=== PATIENT | female | born 1990 | race Caucasian/White ===

== ENCOUNTER 2016-04-05 09:45 | Emergency (ER) | payer OTHER ==
[~2016-04-05] VITALS: Ht 170.2 cm; Wt 108.7 kg
[~2016-04-05 09:45] MED LIST: ABREVA2 GM TP; ATARAX,VISTARIL25 MG PO; BENADRYL25 MG PO; CALCITROL; CIPRODEX OTIC7.5 ML LEFT EAR; DOXYCYCLINE MO100 MG PO; FLAGYL500 MG PO; FLEXERIL5 MG PO; FLONASE16 G1 BOTH NARES; GUAIFENESIN600 M1 PO; INDOCIN25 MG PO; KEFLEX500 MG PO; LEVAQUIN750 MG PO; MEDROL DOSEPAK4 MG PO; Motrin PO; NAPROSYN500 MG PO; NATALCARE RX1 TABLET PO; ONDANSETRON HCL8 MG; PEPCID20 MG PO; PERCOCET 5/31 TABLET PO; PRENATAL 19 TA1 EACH; PROAIR RESPICL90 MCG IH; Prefera-OB Plus DHA PO; PriLOSEC PO; REGLAN10 MG PO; ROBITUSSIN NIG118 ML PO; TESSALON PERLE100 MG PO; ULTRAM50 MG PO; Zofran PO; ~No Medications
[2016-04-05 10:47] LABS: ADD MIUA? YES; BILIRUBIN NEGATIVE; BLOOD SMALL; COLOR YELLOW ((YELLOW)); GLUCOSE (STRIP) NEGATIVE; KETONES NEGATIVE; LEUKOCYTES NEGATIVE; NITRITE NEGATIVE; PROTEIN (STRIP) NEGATIVE; SPECIFIC GRAVITY 1.026 (1.000-1.030); UROBILINOGEN 0.2 MG/DL (0.2-1.0)
[2016-04-05 10:57] LABS: BACTERIA RARE /HPF; EPITHELIAL CELLS 1+ /HPF; MUCUS 3+ /LPF; RED BLOOD CELLS 0-5 /HPF (0-5); WHITE BLOOD CELLS 0-5 /HPF (0-5)
[2016-04-05 11:22] LABS: CHLORIDE 106 mEq/L (99-109); POTASSIUM 3.9 mEq/L (3.7-5.4); SODIUM 140 mEq/L (136-147)
[2016-04-05 11:24] LABS: GLUCOSE 92 mg/dL (70-99)
[2016-04-05 11:25] LABS: ANION GAP 11 MEQ/L (2-14)
[2016-04-05 11:28] LABS: GFR ESTIMATE (CALCULATED) > 59 mL/min/
[2016-04-05 11:29] LABS: UREA NITROGEN (BUN) 12 mg/dL (9-23)
[2016-04-05 12:18] VITALS: BP 122/74
== END 2016-04-05 12:19 | disposition home or self-care (01) ==
LOC: EXP 09:45 → EME 09:45 → EXP 12:19
PROVIDERS: Physician Assistant
DX: R19.7 Diarrhea, unspecified (principal); R91.1 Solitary pulmonary nodule; Z88.2 Allergy status to sulfonamides
CPT/HCPCS: 71020; 80048; 81003; 99281; 99284

== ENCOUNTER 2016-05-06 12:10 | Emergency (ER) | payer OTHER ==
[~2016-05-06] VITALS: Ht 170.2 cm; Wt 110.0 kg
[2016-05-06 12:59] LABS: HEMATOCRIT 47.2 % (36.0-46.0); MCH 30.4 PG (29.0-34.0); MCHC 33.5 G/DL (30.0-36.0); MCV 90.8 FL (83-99); PLATELET COUNT 276 K/uL (156-360); RBC DIS.WIDTH-CV 11.6 % (11.8-14.6); RBC DIS.WIDTH-SD 38.5 % (39-53); WHITE BLOOD COUNT 11.5 K/uL (4.1-10.2)
[2016-05-06 13:10] LABS: PROTHROMBIN TIME 10.6 (9.2-11.2); PTT 29.6 (25-32)
[2016-05-06 13:13] LABS: CHLORIDE 107 mEq/L (99-109); POTASSIUM 4.3 mEq/L (3.7-5.4); SODIUM 138 mEq/L (136-147)
[2016-05-06 13:15] LABS: GLUCOSE 117 mg/dL (70-99)
[2016-05-06 13:16] LABS: ANION GAP 12 MEQ/L (2-14)
[2016-05-06 13:17] LABS: TOTAL BILIRUBIN 0.6 mg/dL (0.0-1.0)
[2016-05-06 13:19] LABS: ALKALINE PHOSPHATASE 73 IU/L (3-129); GFR ESTIMATE (CALCULATED) > 59 mL/min/
[2016-05-06 13:20] LABS: UREA NITROGEN (BUN) 15 mg/dL (9-23)
[2016-05-06 13:30] LABS: QUANTITATIVE HCG < 4.0 MIU/ML
[2016-05-06 16:24] LABS: AMPHETAMINE NEGATIVE (500 ng/mL); BARBITURATES PRESUMPTIVE POSITIVE (200 ng/mL); BENZODIAZEPINES NEGATIVE (150 ng/mL); COCAINE NEGATIVE (150 ng/mL); METHADONE NEGATIVE (200 ng/mL); METHAMPHETAMINE NEGATIVE (500 ng/mL); OPIATES (MORPHINE) NEGATIVE (100 ng/mL); OXYCODONE NEGATIVE (100 ng/mL); PHENCYCLIDINE NEGATIVE (25 ng/mL); PROPOXYPHENE NEGATIVE (300 ng/mL); THC CANNABINOIDS NEGATIVE (50 ng/mL); TRICYCLIC ANTIDEPRESSANTS NEGATIVE (300 ng/mL)
[2016-05-06 16:25] LABS: ADD MEDTOX COMMENT Y; INTERNAL CONTROLS VALID? YES
[2016-05-06 17:05] LABS: BARBITUATES QUANT VALUE 0 NG/ML
[2016-05-06 18:55] VITALS: BP 134/88
== END 2016-05-06 18:55 | disposition home or self-care (01) ==
LOC: EME 12:10
DX: K02.9 Dental caries, unspecified (principal); T39.1X1A Poisoning by 4-Aminophenol derivatives, accidental (unintentional), initial encounter; F13.90 Sedative, hypnotic, or anxiolytic use, unspecified, uncomplicated; Z88.2 Allergy status to sulfonamides
CPT/HCPCS: 80053; 84702; 84999; 85027; 85610; 85730; 99281; 99285; G0480; J2405; J2765; J7030

== ENCOUNTER 2016-07-13 21:18 | Emergency (ER) | payer OTHER ==
[~2016-07-13] VITALS: Ht 170.2 cm; Wt 110.4 kg
[2016-07-13 23:52] VITALS: BP 128/100
== END 2016-07-13 23:52 | disposition home or self-care (01) ==
LOC: EME 21:18 → RME 21:18
DX: K08.119 Complete loss of teeth due to trauma, unspecified class (principal); W19.XXXA Unspecified fall, initial encounter; Y93.61 Activity, american tackle football
CPT/HCPCS: 99281; 99283

== ENCOUNTER 2016-11-03 21:38 | Emergency (ER) | payer OTHER ==
[~2016-11-03] VITALS: Ht 170.2 cm; Wt 107.2 kg
[2016-11-03 22:18] LABS: ADD MIUA? YES; BILIRUBIN NEGATIVE; BLOOD SMALL; COLOR YELLOW ((YELLOW)); GLUCOSE (STRIP) NEGATIVE; KETONES NEGATIVE; LEUKOCYTES MODERATE; NITRITE NEGATIVE; PROTEIN (STRIP) NEGATIVE; SPECIFIC GRAVITY 1.028 (1.000-1.030); UROBILINOGEN 0.2 MG/DL (0.2-1.0)
[2016-11-03 22:29] LABS: BACTERIA NONE SEEN /HPF; EPITHELIAL CELLS 1+ /HPF; MUCUS TRACE /LPF; UCUL ADDED? YES; WHITE BLOOD CELLS 15-20 /HPF (0-5)
[2016-11-03 22:45] LABS: HEMATOCRIT 42.7 % (36.0-46.0); MCH 29.7 PG (29.0-34.0); MCHC 33.7 G/DL (30.0-36.0); MEAN PLAT.VOLUME 10.4 uM^3 (9.5-12.4); PLATELET COUNT 235 K/uL (156-360); RBC DIS.WIDTH-CV 12.3 % (11.8-14.6); RBC DIS.WIDTH-SD 39.6 % (39-53); RED BLOOD COUNT 4.85 M/uL (3.80-5.20); WHITE BLOOD COUNT 14.3 K/uL (4.1-10.2)
[2016-11-03 23:01] LABS: CHLORIDE 104 mEq/L (99-109); POTASSIUM 3.6 mEq/L (3.7-5.4); SODIUM 140 mEq/L (136-147)
[2016-11-03 23:03] LABS: GLUCOSE 87 mg/dL (70-99)
[2016-11-03 23:04] LABS: ANION GAP 12 MEQ/L (2-14)
[2016-11-03 23:05] LABS: TOTAL BILIRUBIN 0.5 mg/dL (0.0-1.0)
[2016-11-03 23:06] LABS: ALKALINE PHOSPHATASE 82 IU/L (3-129)
[2016-11-03 23:07] LABS: GFR ESTIMATE (CALCULATED) > 59 mL/min/
[2016-11-03 23:08] LABS: UREA NITROGEN (BUN) 11 mg/dL (9-23)
[2016-11-03 23:17] LABS: QUANTITATIVE HCG < 4.0 MIU/ML
[2016-11-04] MEDS ORDERED: ZOFRAN ODT4 MG PO (00:58)
[2016-11-04] MEDS ORDERED: PERCOCET 5/31 TABLET PO (00:58)
[2016-11-04] MEDS ORDERED: CIPRO500 MG PO (00:58)
[2016-11-04 01:33] VITALS: BP 140/88
== END 2016-11-04 01:33 | disposition home or self-care (01) ==
LOC: EME 21:38
DX: N39.0 Urinary tract infection, site not specified (principal); R51 Headache; K76.0 Fatty (change of) liver, not elsewhere classified; R91.1 Solitary pulmonary nodule; Z90.49 Acquired absence of other specified parts of digestive tract
CPT/HCPCS: 74177; 80053; 81003; 84702; 85027; 87086; 99281; 99284; J2270; J2405; J3010; J7030

== ENCOUNTER 2017-01-22 23:27 | Emergency (ER) | payer OTHER ==
[~2017-01-22] VITALS: Ht 170.2 cm; Wt 105.0 kg
[~2017-01-22 23:27] MED LIST changes: +CIPRO500 MG PO; +ZOFRAN ODT4 MG PO
[2017-01-23 00:07] LABS: HEMATOCRIT 41.7 % (36.0-46.0); HEMOGLOBIN 14.2 G/DL (11.9-15.5); MCH 30.5 PG (29.0-34.0); MCHC 34.1 G/DL (30.0-36.0); MCV 89.5 FL (83-99); PLATELET COUNT 254 K/uL (156-360); RBC DIS.WIDTH-CV 12.6 % (11.8-14.6); RBC DIS.WIDTH-SD 41.5 % (39-53); RED BLOOD COUNT 4.66 M/uL (3.80-5.20); WHITE BLOOD COUNT 11.9 K/uL (4.1-10.2)
[2017-01-23 00:10] LABS: APPEARANCE CLOUDY ((CLEAR)); BILIRUBIN NEGATIVE; BLOOD LARGE; COLOR YELLOW ((YELLOW)); GLUCOSE (STRIP) NEGATIVE; KETONES NEGATIVE; LEUKOCYTES LARGE; NITRITE NEGATIVE; PROTEIN (STRIP) 100; SPECIFIC GRAVITY 1.025 (1.000-1.030); UROBILINOGEN 0.2 MG/DL (0.2-1.0)
[2017-01-23 00:15] LABS: CHLORIDE 106 mEq/L (99-109); POTASSIUM 3.9 mEq/L (3.7-5.4); SODIUM 139 mEq/L (136-147)
[2017-01-23 00:17] LABS: GLUCOSE 89 mg/dL (70-99); TOTAL PROTEIN 7.5 g/dL (6.4-8.3)
[2017-01-23 00:19] LABS: TOTAL BILIRUBIN 0.5 mg/dL (0.0-1.0)
[2017-01-23 00:21] LABS: ALKALINE PHOSPHATASE 80 IU/L (3-129); CREATININE 0.9 mg/dL (0.6-1.3); GFR ESTIMATE (CALCULATED) > 59 mL/min/
[2017-01-23 00:22] LABS: UREA NITROGEN (BUN) 13 mg/dL (9-23)
[2017-01-23 00:23] LABS: AST (GOT) 27 IU/L (2-34)
[2017-01-23 00:24] LABS: ALT (GPT) 43 IU/L (3-49)
[2017-01-23 00:30] LABS: QUANTITATIVE HCG < 4.0 MIU/ML
[2017-01-23 00:50] LABS: EPITHELIAL CELLS 3+ /HPF
[2017-01-23 00:51] LABS: BACTERIA 2+ /HPF; RED BLOOD CELLS 30-40 /HPF (0-5); UCUL ADDED? YES; WHITE BLOOD CELLS 20-30 /HPF (0-5)
[2017-01-23 00:53] LABS: MUCUS 3+ /LPF
[2017-01-23] MEDS ORDERED: KEFLEX500 MG PO (01:03)
[2017-01-23] MEDS ORDERED: MOTRIN600 MG PO (01:06)
[2017-01-23 01:22] VITALS: BP 111/88
== END 2017-01-23 01:23 | disposition home or self-care (01) ==
LOC: EME 23:27
DX: N39.0 Urinary tract infection, site not specified (principal); Z90.49 Acquired absence of other specified parts of digestive tract; J45.909 Unspecified asthma, uncomplicated; Z88.2 Allergy status to sulfonamides
CPT/HCPCS: 80053; 81003; 84702; 85027; 87086; 99281; 99285

== ENCOUNTER 2017-05-10 09:42 | Emergency (ER) | payer OTHER ==
[~2017-05-10] VITALS: Ht 170.2 cm; Wt 105.5 kg
[~2017-05-10 09:42] MED LIST changes: +MOTRIN600 MG PO
[2017-05-10 10:50] LABS: HEMATOCRIT 42.9 % (36.0-46.0); HEMOGLOBIN 14.7 G/DL (11.9-15.5); MCH 30.6 PG (29.0-34.0); MCHC 34.3 G/DL (30.0-36.0); MCV 89.4 FL (83-99); PLATELET COUNT 214 K/uL (156-360); RBC DIS.WIDTH-CV 12.1 % (11.8-14.6); RBC DIS.WIDTH-SD 39.6 % (39-53); WHITE BLOOD COUNT 12.1 K/uL (4.1-10.2)
[2017-05-10 10:59] LABS: APPEARANCE CLEAR ((CLEAR)); BILIRUBIN NEGATIVE; BLOOD NEGATIVE; COLOR YELLOW ((YELLOW)); GLUCOSE (STRIP) NEGATIVE; KETONES NEGATIVE; LEUKOCYTES NEGATIVE; NITRITE NEGATIVE; PROTEIN (STRIP) NEGATIVE; SPECIFIC GRAVITY 1.019 (1.000-1.030); UCUL ADDED? NO; UROBILINOGEN 0.2 MG/DL (0.2-1.0)
[2017-05-10 11:03] LABS: CHLORIDE 105 mEq/L (99-109); POTASSIUM 4.5 mEq/L (3.7-5.4); SODIUM 137 mEq/L (136-147)
[2017-05-10 11:05] LABS: GLUCOSE 90 mg/dL (70-99)
[2017-05-10 11:09] LABS: CREATININE 0.8 mg/dL (0.6-1.3); GFR ESTIMATE (CALCULATED) > 59 mL/min/
[2017-05-10 11:10] LABS: UREA NITROGEN (BUN) 10 mg/dL (9-23)
[2017-05-10 11:20] LABS: QUANTITATIVE HCG < 4.0 MIU/ML
[2017-05-10] MEDS ORDERED: ZOFRAN4 MG PO (13:43)
[2017-05-10 14:08] VITALS: BP 118/68
== END 2017-05-10 14:09 | disposition home or self-care (01) ==
LOC: EME 09:42
DX: M54.5 Low back pain (principal); J45.909 Unspecified asthma, uncomplicated; Z88.2 Allergy status to sulfonamides
CPT/HCPCS: 74176; 80048; 81003; 84702; 85027; 99281; 99284; J1885

== ENCOUNTER 2017-05-15 16:41 | Emergency (ER) | payer OTHER ==
[~2017-05-15] VITALS: Ht 170.2 cm; Wt 104.1 kg
[~2017-05-15 16:41] MED LIST changes: +ZOFRAN4 MG PO
[2017-05-15 17:14] LABS: HEMATOCRIT 39.2 % (36.0-46.0); HEMOGLOBIN 13.6 G/DL (11.9-15.5); MCH 30.9 PG (29.0-34.0); MCHC 34.7 G/DL (30.0-36.0); MCV 89.1 FL (83-99); PLATELET COUNT 221 K/uL (156-360); RBC DIS.WIDTH-CV 12.2 % (11.8-14.6); RBC DIS.WIDTH-SD 39.8 % (39-53); WHITE BLOOD COUNT 11.6 K/uL (4.1-10.2)
[2017-05-15 17:22] LABS: APPEARANCE CLEAR ((CLEAR)); BILIRUBIN NEGATIVE; BLOOD NEGATIVE; COLOR YELLOW ((YELLOW)); GLUCOSE (STRIP) NEGATIVE; KETONES NEGATIVE; LEUKOCYTES NEGATIVE; NITRITE NEGATIVE; PROTEIN (STRIP) NEGATIVE; SPECIFIC GRAVITY 1.015 (1.000-1.030); UCUL ADDED? NO; UROBILINOGEN 0.2 MG/DL (0.2-1.0)
[2017-05-15 17:28] LABS: ALBUMIN 4.1 g/dL (3.2-4.8); CHLORIDE 104 mEq/L (99-109); POTASSIUM 3.9 mEq/L (3.7-5.4); SODIUM 140 mEq/L (136-147)
[2017-05-15 17:30] LABS: GLUCOSE 92 mg/dL (70-99); TOTAL PROTEIN 7.3 g/dL (6.4-8.3)
[2017-05-15 17:32] LABS: TOTAL BILIRUBIN 0.8 mg/dL (0.0-1.0)
[2017-05-15 17:34] LABS: ALKALINE PHOSPHATASE 68 IU/L (3-129); CREATININE 0.8 mg/dL (0.6-1.3); GFR ESTIMATE (CALCULATED) > 59 mL/min/
[2017-05-15 17:35] LABS: AST (GOT) 26 IU/L (2-34); UREA NITROGEN (BUN) 11 mg/dL (9-23)
[2017-05-15 17:37] LABS: ALT (GPT) 33 IU/L (3-49)
[2017-05-15 17:42] LABS: QUANTITATIVE HCG < 4.0 MIU/ML
[2017-05-15 18:06] LABS: LIPASE 17 U/L (1.0-51.0)
[2017-05-15 18:42] LABS: SOURCE SWAB
[2017-05-15] MEDS ORDERED: DOXYCYCLINE HY100 MG PO (20:21)
[2017-05-15] MEDS ORDERED: NAPROSYN500 MG PO (20:22)
[2017-05-15 20:41] VITALS: BP 103/62
== END 2017-05-15 20:42 | disposition home or self-care (01) ==
LOC: EME 16:41
PROVIDERS: Physician Assistant
DX: N73.9 Female pelvic inflammatory disease, unspecified (principal); J45.909 Unspecified asthma, uncomplicated; Z90.49 Acquired absence of other specified parts of digestive tract; Z87.09 Personal history of other diseases of the respiratory system; Z88.2 Allergy status to sulfonamides
CPT/HCPCS: 76856; 80053; 81003; 83690; 84702; 85027; 87210; 87491; 87591; 99281; 99284; J0696

== ENCOUNTER 2017-07-21 21:21 | Emergency (ER) | payer OTHER ==
[~2017-07-21] VITALS: Ht 170.2 cm; Wt 106.3 kg
[~2017-07-21 21:21] MED LIST changes: +DOXYCYCLINE HY100 MG PO
[2017-07-21] MEDS ORDERED: NORCO 10/3251 TABLET PO (23:27)
[2017-07-21] MEDS ORDERED: MOTRIN600 MG PO (23:27)
[2017-07-21 23:40] VITALS: BP 124/90
== END 2017-07-21 23:43 | disposition home or self-care (01) ==
LOC: EME → EDSEX 21:21 → EME 21:21 → EDBD 21:21 → EME 23:43
DX: S63.502A Unspecified sprain of left wrist, initial encounter (principal); S00.83XA Contusion of other part of head, initial encounter; S60.812A Abrasion of left wrist, initial encounter; S60.552A Superficial foreign body of left hand, initial encounter; S60.852A Superficial foreign body of left wrist, initial encounter; S60.212A Contusion of left wrist, initial encounter; R51 Headache; V49.40XA Driver injured in collision with unspecified motor vehicles in traffic accident, initial encounter; W25.XXXA Contact with sharp glass, initial encounter; W45.8XXA Other foreign body or object entering through skin, initial encounter; Y92.410 Unspecified street and highway as the place of occurrence of the external cause; F17.200 Nicotine dependence, unspecified, uncomplicated
CPT/HCPCS: 73110; 73130; 99281; 99284

== ENCOUNTER 2017-07-28 22:46 | Emergency (ER) | payer OTHER ==
[~2017-07-28] VITALS: Ht 170.2 cm; Wt 106.8 kg
[~2017-07-28 22:46] MED LIST changes: +NORCO 10/3251 TABLET PO
[2017-07-29] MEDS ORDERED: ULTRAM50 MG PO (01:29)
[2017-07-29 01:45] VITALS: BP 146/85
== END 2017-07-29 01:45 | disposition home or self-care (01) ==
LOC: EME 22:46
PROC: 2W3DX1Z Immobilization of Left Lower Arm using Splint (ICD-10-PCS; principal; 2017-07-29)
DX: S63.502A Unspecified sprain of left wrist, initial encounter (principal); V49.9XXA Car occupant (driver) (passenger) injured in unspecified traffic accident, initial encounter; Z88.2 Allergy status to sulfonamides
CPT/HCPCS: 99281; 99284

== ENCOUNTER 2017-08-04 20:31 | Emergency (ER) | payer OTHER ==
[~2017-08-04] VITALS: Ht 170.2 cm; Wt 105.3 kg
[2017-08-04 21:46] VITALS: BP 136/90
== END 2017-08-04 21:53 | disposition home or self-care (01) ==
LOC: EME 20:31
PROC: 2W3DX1Z Immobilization of Left Lower Arm using Splint (ICD-10-PCS; principal; 2017-08-04)
DX: S63.502A Unspecified sprain of left wrist, initial encounter (principal); V49.9XXA Car occupant (driver) (passenger) injured in unspecified traffic accident, initial encounter; Y92.410 Unspecified street and highway as the place of occurrence of the external cause; Z90.49 Acquired absence of other specified parts of digestive tract; Z88.2 Allergy status to sulfonamides
CPT/HCPCS: 99281; 99283

== ENCOUNTER 2017-08-12 03:35 | Emergency (ER) | payer OTHER ==
[~2017-08-12] VITALS: Ht 165.1 cm; Wt 105.7 kg
[2017-08-12 03:40] VITALS: BP 125/83
== END 2017-08-12 04:00 | disposition left against medical advice (07) ==
LOC: EME 03:35
DX: M79.642 Pain in left hand (principal); Z53.21 Procedure and treatment not carried out due to patient leaving prior to being seen by health care provider

== ENCOUNTER 2017-08-17 09:07 | Emergency (ER) | payer OTHER ==
[~2017-08-17] VITALS: Ht 165.1 cm; Wt 104.6 kg
[2017-08-17] MEDS ORDERED: ZITHROMAX Z-PA250 MG PO (11:26)
[2017-08-17 11:51] VITALS: BP 118/75
== END 2017-08-17 11:52 | disposition home or self-care (01) ==
LOC: EME 09:07
DX: J20.9 Acute bronchitis, unspecified (principal); F17.210 Nicotine dependence, cigarettes, uncomplicated; Z88.2 Allergy status to sulfonamides
CPT/HCPCS: 71046

== ENCOUNTER 2017-08-19 08:48 | Emergency (ER) | payer OTHER ==
[~2017-08-19] VITALS: Ht 165.1 cm; Wt 105.0 kg
[~2017-08-19 08:48] MED LIST changes: +ZITHROMAX Z-PA250 MG PO
[2017-08-19] MEDS ORDERED: TESSALON PERLE100 MG PO (10:08)
[2017-08-19] MEDS ORDERED: PREDNISONE50 MG PO (10:08)
[2017-08-19 10:30] VITALS: BP 116/84
== END 2017-08-19 10:31 | disposition home or self-care (01) ==
LOC: EME 08:48
DX: J20.9 Acute bronchitis, unspecified (principal); J06.9 Acute upper respiratory infection, unspecified; J45.909 Unspecified asthma, uncomplicated; F17.200 Nicotine dependence, unspecified, uncomplicated; Z88.2 Allergy status to sulfonamides
CPT/HCPCS: 71046; 99281; 99283; J7512